=== PATIENT | female | born 1955 | race Caucasian/White ===

== ENCOUNTER → 2017-01-16 | Outpatient (CLI) | payer BC ==
[~2017-01-16] MED LIST: ASPI-781 PO; CYCL-319 PO; FLEXERIL; NAPR-260 PO; OXYC-281 PO; TYLENOL ES PO
--- NOTE | 2017-01-16 11:59 | RADRPT ---
PROCEDURE: XR Knees. CLINICAL INDICATION: Bilateral knee pain. TECHNIQUE: Total of six views. Frontal, oblique, and lateral views of both knees. COMPARISON: Left knee radiographs dated 11/24/2015. FINDINGS: On the right side, there is a total constrained arthroplasty which appears satisfactory. There is no fracture, dislocation, or loosening. There is a right knee joint effusion. On the left side, there are degenerative changes with osteophytes arising from all 3 joint compartme nt margins. There is patellofemoral joint compartment narrowing. There is chondrocalcinosis. There i s no fracture or dislocation. There is no lytic or blastic lesion. IMPRESSION: 1. Total right knee arthroplasty. 2. Right knee joint effusion. 3. Moderate degenerative changes of the left knee. RPTAT: QQ .Pee Orellana MD, Date Time Electronically viewed and signed by .Pee Orellana MD, MD on 01/16/2017 11:58 .R/
--- NOTE | 2017-01-16 12:00 | RADRPT ---
PROCEDURE: XR Left Hip and pelvis. CLINICAL INDICATION: Left hip pain. Pelvic pain. TECHNIQUE: Two views. Frontal pelvis and lateral left hip. COMPARISON: Right hip radiographs dated 09/21/2015. FINDINGS: There is a total right hip arthroplasty which appears satisfactory. Cerclage wires are present surro unding the proximal right femur. There are moderate degenerative changes of the left hip with joint space narrowing and osteophytes. There is no fracture or dislocation. There is no lytic or blastic lesion. The upper pelvis is not included on the images. IMPRESSION: 1. Satisfactory postoperative appearance of the right hip. 2. Moderate degenerative changes of the left hip. RPTAT: QQ .Pee Orellana MD, MD Date Time Electronically viewed and signed by .Pee Orellana MD, on 01/16/2017 11:59 .R/
--- NOTE | 2017-01-16 18:48 | HKNOTE ---
DATE OF SERVICE: 01/16/2017 MAIN COMPLAINT: The patient continues to complain of pain in the left knee. The last Monovisc injection into her knee gave her a year of relief, and she is back and complains of the same symptoms. She requests repeat injection. The right hip is now completely symptom free except for "a twinge of pain every few months." She requests a repeat injection of viscus supplement into her knee. PHYSICAL EXAMINATION: On left hip, there is full range of motion without pain. Examination of the left knee, flexion-extension are full. Pain on forced flexion. Slight tenderness over the medial joint line. Three plus crepitus in the knee and on the patella. One plus effusion. IMAGING: Plain x-rays of the pelvis and hips obtained today showed that the right hip replacement, which sustained a fracture during surgery of the greater trochanter, has now stabilized. There may be some measure of nonunion, but the fracture fragments remain in anatomical position and appear to be consolidating further. X-rays of the left hip show full dysplasia with a well- maintained joint space. X-rays of the left knee show narrowing of all 3 compartments of the knee. There is no bone on bone contact. Minimal secondary changes of subchondral sclerosis. Small osteophytes. DIAGNOSES: 1. Degenerative osteoarthritis of the left knee. 2. Status post right hip replacement. 3. Congenital dysplasia of the left hip. MANAGEMENT: Under sterile conditions, she is given an injection of Monovisc into the left knee, and she will be seen again as necessary for further treatment. Dictated By: Viet Steel MD /[email or web address]/[email or web address] /Document#: [id number]
== END | disposition home or self-care (01) ==
LOC: HKI 10:02
DX: M17.12 Unilateral primary osteoarthritis, left knee (principal); Q65.89 Other specified congenital deformities of hip; Z96.641 Presence of right artificial hip joint
CPT/HCPCS: 20610; 73502; 73562; J7327; Z7500; Z7610; G0463

== ENCOUNTER → 2017-09-05 | Outpatient (CLI) | END | disposition home or self-care (01) ==

== ENCOUNTER → 2018-09-18 | Outpatient (CLI) | payer BC ==
[~2018-09-18] MED LIST changes: -CYCL-319 PO; +CYCL10TA7 PO; -NAPR-260 PO; +NAPR-985 PO
--- NOTE | 2018-09-18 19:23 | CONS ---
Assessment/Plan Assessment/Plan Hospital Course (Demo Recall) 62-year-old female with osteoarthritis and chondrocalcinosis of her left knee. Overall her symptoms are tolerable however they are exacerbated with activity such as dancing and using stairs. A repeat hyaluronic acid injection is a very reasonable treatment option given she had a very good response last time and her symptoms and radiographs do not warrant a total knee arthroplasty. Plan: Left knee Monovisc injection Ice Weight loss Low impact activity Follow-up PRN Assessment/Plan (Daily) Left knee viscosupplementation injection procedure: Risks and benefits of viscosupplementation injection reviewed with patient. The risks include infection, failure, pain, swelling, nerve/tendon/ligament damage. The patient verbalized understanding and verbal consent was obtained prior to procedure. The left knee was prepped in a sterile fashion with alcohol and betadine the site of injection was confirmed. Lateral approach was used. The skin and capsule was anesthetized with 3mL 1% lidocaine. The left knee was injected with Monovisc. Injection flowed freely. Good hemostasis was achieved and no complications noted. The patient tolerated the procedure well. Limit activity and ice for 24-48 hours Consultation Date/Type/Reason Admit Date/Time Date of Consultation: Sep 18, 2018 Reason for Consultation Left knee pain Date/Time of Note DATE: 09/18/18 TIME: 19:14 Hx of Present Illness This is a 62-year-old female with a chief complaint of left knee pain. She is a previous patient of Dr. Steel'obdulia and is status post right total hip and total knee arthroplasties. Denies any issues with the right hip and knee. The left knee pain began approximately a year ago. Patient had a Monovisc injection in August 2017 which helped her significantly for the past year. The patients darien n is in the medial and lateral aspect of the left knee. Pain is not radiating to the lower leg. The pain is rated as a 3/10. The pain is not constant. Patient denies complaints of numbness or tingling. The pain is exacerbated by climbing stairs and dancing. Patient would like a repeat Monovisc injections today. Duration: One year Injury: No Walking tolerance: Not significantly limited Limp: Occasionally Support: Cane when limping Swelling: No Crepitation: Yes Instability: No Stairs: Uses banister Physical Therapy: No Injections: Monovisc injection August 2017 NSAIDs: Now Prior surgery: No Back pain: Yes Hip pain: No Risk of AVN : No Patient denies fever, chills, shortness of breath, chest pain, nausea/vomiting, constipation, diarrhea, numbness, and tingling. Past Medical History Bilateral developmental dysplasia of the hip Home Meds Active Scripts Aspirin* (Ecotrin*) 325 Mg Tabec, 325 MG PO ONCE for 45 Days Prov:HIMANSHU KNAPPN 06/25/15 Reported Medications Cyclobenzaprine Hcl* (Cyclobenzaprine Hcl*) 10 Mg Tablet, 10 MG PO Q8 PRN for PAIN, #60 TAB 06/25/15 Oxycodone Hcl-Acetaminophen* (Percocet*) 5-325 Mg Tablet, 1 TAB PO Q4H PRN for PAIN, TAB 06/25/15 [Flexeril] No Conflict Check, PRN 06/24/15 Naproxen* (Naprosyn*) 500 Mg Tablet, 500 MG PO BID, TAB 06/24/15 [Tylenol Es] No Conflict Check, MG PO PRN for PAIN 06/24/15 Allergies: Coded Allergies: No Known Allergy (Unverified , 06/25/15) Past Surgical History Right total hip arthroplasty right total knee arthroplasty Family History Significant Family History: no pertinent family hx Social History Alcohol Use: other Smoking Status: Unknown if ever smoked Drug Use: none Exam/Review of Systems Exam Vitals Weight: 1 6 7 pounds Height: 5 foot 8 inches Temperature: 98.1 Heart Rate: 76 Blood Pressure: 147/65 Respiratory Rate: 14 Exam General: Alert, oriented x3. No Acute Distress. Heart: Regular rate and rhythm. Lungs: No respiratory distress. No accessory muscle use. Musculoskeletal: Left Knee This is a well developed female who is alert, oriented times three and in no apparent distress. Skin is intact over the left knee as well as the lower extremity with no abrasions, lacerations, or ulcerations. Observation of the patient's gait reveals a mild antalgic gait with No thrust. Frontal plane alignment is neutral. There is minimal pain on palpation of medial and lateral joint line. The patient demonstrates grinding anteriorly with ROM. Range of motion: 0 extension to approximately 130 degrees of flexion. Collateral ligament testing reveals no instability with varus or valgus stress at 0 and 30 degrees of flexion. Negative Cayden's and negative posterior drawer. Neurovascularly intact with 5/5 EHL/tibialis anterior/gastroc. Sensation intact to light touch in a sural, saphenous, deep peroneal, superficial peroneal, medial and lateral plantar nerve distribution. Palpable, symmetric dorsalis pedis and posterior tibial pulses in both lower extremities. Hip examination normal. Imaging Imaging The patient received a standard set of films today that were personally reviewed. Imaging included a standing bilateral knee AP, PA flexion, merchant views and a dedicated lateral of the affected knee: There is neutral alignment of the knee. There is moderate loss of joint space in all compartment(s). Significant chondrocalcinosis of both medial and lateral menisci. There is mild to moderate osteophyte formation. There is mild subchondral sclerosis. There are no subchondral cysts. Degenerative changes are most severe in the medial and lateral compartment(s) BRIGETTE GILLESPIE MD Sep 18, 2018 19:23
--- NOTE | 2018-09-19 03:37 | RADRPT ---
PROCEDURE: Bilateral knee series CLINICAL INDICATION: Pain TECHNIQUE: AP weightbearing, PA weightbearing, lateral weightbearing and sunrise views were obtaine d of the right and left knees. COMPARISON: Bilateral knee study 01/16/2017 FINDINGS: No acute fractures. Unremarkable total right knee prosthesis without dislocation or loosening. Modera te degenerate joint disease of the left knee worse involving the patellofemoral compartment. Chondroc alcinosis involving the medial and lateral left knee compartments. No acute fractures or malalignment . Small right knee joint effusion. No evidence of left knee joint effusion. IMPRESSION: 1. Unremarkable total right knee prosthesis without dislocation or loosening. Small right knee joint effusion. 2. Moderate degenerate joint disease of the left knee with chondrocalcinosis. No fracture dislocatio n or joint effusion. RPTAT:AAJJ Physician Eulalio Date Time Electronically viewed and signed by Physician Eulalio on 09/19/2018 03:37 BM/
== END | disposition home or self-care (01) ==
LOC: HKI 15:04
PROVIDERS: ATTEND Orthopaedic Surgery Adult Reconstructive Orthopaedic Surgery
DX: M17.11 Unilateral primary osteoarthritis, right knee (principal); M11.262 Other chondrocalcinosis, left knee; Z96.641 Presence of right artificial hip joint; Z96.651 Presence of right artificial knee joint
CPT/HCPCS: 73564; J7327; Z7500; Z7610; G0463